=== PATIENT | female | born 1985 ===

== ENCOUNTER 2017-07-23 05:49 | Inpatient (IN) ==
[2017-07-23] MEDS ORDERED: BUTORPHANOL 2 MG/ML VIAL IV PRN (06:02)
[2017-07-23] MEDS ORDERED: ONDANSETRON 4 MG/2 ML VIAL IV PRN (06:02)
[2017-07-23] MEDS: LACTATED RINGERS 1,000 ML IV SCH ×2 (06:29→10:45)
[2017-07-23 06:35] LABS: Basophils % 0.4 % (0.0-0.8); Eosinophils # 0.1 10*3/uL (0.0-0.87); Eosinophils % 1.6 % (0.00-10.9); Hematocrit 33.9 VOL% (35.7-47.0); Hemoglobin 10.9 GM/DL (12.0-16.0); Immature Granulocytes % 0.3 %; Immature Granulocytes Absolute 0.02 #; Lymphocytes # 1.4 10*3/uL (1.4-4.0); Lymphocytes % 19.5 % (21.3-54.2); Mean Corpuscular HGB Conc 32.2 GM/DL (32-36); Mean Corpuscular Hemoglobin 27 PG (27-34); Mean Corpuscular Volume 82.7 FL (87-102); Mean Platelet Volume 10.1 FL (9.6-12.0); Monocytes # 0.4 10*3/uL (0.11-0.8); Monocytes % 5.6 % (1.7-12.7); Neutrophils # 5.3 10*3/uL (1.4-7.4); Neutrophils % 72.6 % (38.7-73.9); Platelet Count 275 T/CUMM (130-400); Red Cell Distribution Width 14.1 % (9.3-17.3); White Blood Count 7.3 T/CUMM (4-12)
[2017-07-23] MEDS: OXYTOCIN/LR 20 UNIT/1,000 ML BAG IV SCH ×2 (07:00→20:05)
[2017-07-23 07:06] LABS: Albumin 2.4 G/DL (3.4-5.0); Bilirubin,Total 0.4 MG/DL (0.2-1.0); Calcium 8.3 MG/DL (8.5-10.1); Osmolality,Calculated 276.4 MOS/KG (273-304); Total Protein 6.7 G/DL (6.4-8.3)
[2017-07-23] MEDS ORDERED: LACTATED RINGERS 1,000 ML IV ONE (08:02)
[2017-07-23] MEDS ORDERED: ePHEDrine 50 MG/ML AMP IV PRN (08:02)
[2017-07-23] MEDS ORDERED: diphenhydrAMINE 50 MG/1 ML VIAL IV PRN ×2 (08:02)
[2017-07-23] MEDS ORDERED: FAMOTIDINE 20 MG/2 ML VIAL IV ONE (08:02)
[2017-07-23] MEDS ORDERED: CITRIC ACID/SODIUM CITRATE 30 ML UDCUP PO ONE (08:02)
[2017-07-23] MEDS ORDERED: PROMETHAZINE 25 MG/1 ML VIAL IM ONE (08:02)
[2017-07-23] MEDS ORDERED: hydrOXYzine HCL 25 MG/1 ML VIAL IM PRN (08:02)
[2017-07-23] MEDS ORDERED: fentaNYL 2 MCG/ROPIV 0.2% EPID 150 ML EPIDURAL SCH (08:30)
[2017-07-23 11:49] LABS: Apearance,Urine CLEAR (Clear); Bilirubin,Urine Negative (Negative); Blood, Urine Negative (Negative); Glucose,Urine (UA) Negative (Negative); Ketones,Urine Negative (Negative); Mucus,Urine Occasional /LPF (Occasional); Nitrite,Urine Negative (Negative); Protein,Urine Negative; RBC,Urine 1 /HPF (0-4); Squamous Epithelial Cell,Urine Occasional /HPF (0-10); Urine Color Yellow (Yellow); WBC,Urine 1 /HPF (0-6)
[2017-07-23] MEDS ORDERED: miSOPROStol 200 MCG TABLET ONE (13:22)
[2017-07-23] MEDS ORDERED: LIDOCAINE 1% 50 ML VIAL ONE (13:23)
[2017-07-23] MEDS ORDERED: BISACODYL 10 MG SUPP RECTAL PRN (20:43)
[2017-07-23] MEDS ORDERED: ACETAMINOPHEN 325 MG TABLET PO PRN (20:43)
[2017-07-23] MEDS ORDERED: RHO(D) IMMUNE GLOBULIN 300 MCG SYRINGE IM ONE (20:43)
[2017-07-23] MEDS ORDERED: HYDROCORTISONE 2.5% RECTAL CREAM 30 GM TUBE TOP PRN (20:43)
[2017-07-23] MEDS ORDERED: IBUPROFEN 800 MG TABLET PO PRN (20:43)
[2017-07-23] MEDS ORDERED: ACETAMINOPHEN/CODEINE 300-30 MG TABLET PO PRN (20:43)
[2017-07-23] MEDS ORDERED: DIPH/TET/ACEL PERT BOOSTER VACCINE 0.5 ML VIAL IM ONE (20:43)
[2017-07-23] MEDS ORDERED: LANOLIN 50% CREAM 0.3 OZ TUBE TOP PRN (20:43)
[2017-07-23] MEDS ORDERED: oxyCODONE/ACETAMINOPHEN 5-325 MG TABLET PO PRN ×2 (20:43)
[2017-07-23] MEDS ORDERED: MEASLES/MUMPS/RUBELLA VACCINE 0.5 ML VIAL SUBCUT ONE (20:43)
[2017-07-23] MEDS ORDERED: BENZOCAINE 20%/MENTHOL 0.5% SPRAY 56 GM CAN TOP PRN (20:43)
[2017-07-23] MEDS ORDERED: WITCH HAZEL PADS 100/JAR TOP PRN (20:43)
[2017-07-24 05:08] LABS: Basophils % 0.2 % (0.0-0.8); Eosinophils # 0.1 10*3/uL (0.0-0.87); Eosinophils % 1.4 % (0.00-10.9); Hematocrit 28.8 VOL% (35.7-47.0); Hemoglobin 9.4 GM/DL (12.0-16.0); Immature Granulocytes % 0.3 %; Immature Granulocytes Absolute 0.03 #; Lymphocytes # 1.1 10*3/uL (1.4-4.0); Lymphocytes % 11.9 % (21.3-54.2); Mean Corpuscular HGB Conc 32.6 GM/DL (32-36); Mean Corpuscular Hemoglobin 27 PG (27-34); Mean Corpuscular Volume 81.8 FL (87-102); Mean Platelet Volume 10.2 FL (9.6-12.0); Monocytes # 0.6 10*3/uL (0.11-0.8); Monocytes % 6.4 % (1.7-12.7); Neutrophils # 7.5 10*3/uL (1.4-7.4); Neutrophils % 79.8 % (38.7-73.9); Platelet Count 222 T/CUMM (130-400); Red Blood Count 3.52 MC/CUMM (3.8-5.5); Red Cell Distribution Width 14.2 % (9.3-17.3); White Blood Count 9.4 T/CUMM (4-12)
[2017-07-24] MEDS: DOCUSATE SODIUM 100 MG CAPSULE PO SCH ×2 (09:41→20:57)
[2017-07-24] MEDS ORDERED: guaiFENesin/CODEINE 5 ML LIQUID PO PRN (20:27)
[2017-07-24] MEDS ORDERED: diphenhydrAMINE CAP 25 MG CAPSULE PO PRN (20:29)
[2017-07-24] MEDS ORDERED: ALBUTEROL 2.5 MG/3 ML NEB RESP TX PRN (20:31)
[2017-07-24] MEDS: FERROUS SULFATE 325 MG TABLET PO SCH (20:57)
[2017-07-24] MEDS ORDERED: AZITHROMYCIN 250 MG TABLET PO SCH (21:00)
[2017-07-25] MEDS: FERROUS SULFATE 325 MG TABLET PO SCH (09:01)
[2017-07-25] MEDS: DOCUSATE SODIUM 100 MG CAPSULE PO SCH (09:01)
[2017-07-25 11:51] VITALS: BP 158/84
== END 2017-07-25 15:15 | disposition home or self-care (01) | DRG 775 ==
LOC: N.LDOUT 05:49 → N.LD 05:57 → N.OB 20:30
PROVIDERS: ADMIT Obstetrics & Gynecology; ATTEND Obstetrics & Gynecology

== ENCOUNTER 2019-12-29 02:13 | Inpatient (IN) ==
[2019-12-29] MEDS ORDERED: LACTATED RINGERS 1,000 ML IV ONE (02:38)
[2019-12-29] MEDS ORDERED: ONDANSETRON 4 MG/2 ML VIAL IV PRN (02:38)
[2019-12-29] MEDS ORDERED: LACTATED RINGERS 1,000 ML IV SCH (03:00)
[2019-12-29 03:15] LABS: Basophils % 0.3 % (0.0-0.8); Eosinophils # 0.1 10*3/uL (0.0-0.87); Eosinophils % 0.9 % (0.00-10.9); Hemoglobin 9.8 GM/DL (12.0-16.0); Immature Granulocytes % 0.5 %; Immature Granulocytes Absolute 0.04 #; Lymphocytes # 1.6 10*3/uL (1.4-4.0); Lymphocytes % 20.8 % (21.3-54.2); Mean Corpuscular HGB Conc 30.6 GM/DL (32-36); Mean Corpuscular Volume 84.7 FL (87-102); Mean Platelet Volume 10.3 FL (9.6-12.0); Neutrophils % 69.5 % (38.7-73.9); Platelet Count 272 T/CUMM (130-400); Red Blood Count 3.78 MC/CUMM (3.8-5.5); Red Cell Distribution Width 14.3 % (9.3-17.3); White Blood Count 7.8 T/CUMM (4-12)
[2019-12-29] MEDS ORDERED: AMPICILLIN INJ 2,000 MG in SODIUM CHLORIDE 0.9% 100 ML IV ONE (03:29)
[2019-12-29] MEDS ORDERED: AMPICILLIN 2,000 MG VIAL ONE (03:31)
[2019-12-29 03:42] LABS: Alanine Aminotransferase 9 U/L (13-56); Albumin 2.1 G/DL (3.4-5.0); Alkaline Phosphatase 166 U/L (45-117); Aspartate Amino Transferase 12 U/L (0-37); Bilirubin,Total < 0.39 MG/DL (0.2-1.0); Blood Urea Nitrogen 11 MG/DL (7-18); Calcium 8.4 MG/DL (8.5-10.1); Estimated Glom Filtration Rate 137 ML/MIN; Glucose 91 MG/DL (74-106); Total Protein 7.3 G/DL (6.4-8.3)
[2019-12-29] MEDS ORDERED: BUTORPHANOL 2 MG/ML VIAL IV PRN (04:52)
[2019-12-29] MEDS ORDERED: FAMOTIDINE 20 MG/2 ML VIAL IV ONE (06:24)
[2019-12-29] MEDS ORDERED: PROMETHAZINE 25 MG/1 ML VIAL IM ONE (06:24)
[2019-12-29] MEDS ORDERED: hydrOXYzine HCL 25 MG/1 ML VIAL IM PRN (06:24)
[2019-12-29] MEDS ORDERED: ePHEDrine 50 MG/ML AMP IV PRN (06:24)
[2019-12-29] MEDS ORDERED: diphenhydrAMINE 50 MG/1 ML VIAL IV PRN ×2 (06:24)
[2019-12-29] MEDS ORDERED: CITRIC ACID/SODIUM CITRATE 30 ML UDCUP PO ONE (06:24)
[2019-12-29] MEDS ORDERED: ONDANSETRON 4 MG/2 ML VIAL IV ONE (06:24)
[2019-12-29] MEDS ORDERED: NALOXONE 0.4 MG/ML VIAL IV PRN (06:24)
[2019-12-29] MEDS ORDERED: fentaNYL 2 MCG/ROPIV 0.2% EPID 100 ML EPIDURAL SCH (06:30)
[2019-12-29] MEDS ORDERED: AMPICILLIN INJ 1,000 MG in SODIUM CHLORIDE 0.9% 100 ML IV SCH (07:30)
[2019-12-29] MEDS ORDERED: TRANEXAMIC ACID 1,000 MG/10 ML VIAL ONE (07:47)
[2019-12-29] MEDS ORDERED: OXYTOCIN/LR 20 UNIT/1,000 ML BAG IV ONE ×2 (07:47→15:22)
[2019-12-29] MEDS ORDERED: miSOPROStoL 200 MCG TABLET ONE (07:47)
[2019-12-29] MEDS ORDERED: METHYLERGONOVINE 0.2 MG/1 ML AMP ONE (07:48)
[2019-12-29] MEDS ORDERED: CARBOPROST TROMETHAMINE 250 MCG/ML AMP IM ONE (07:48)
[2019-12-29] MEDS: OXYTOCIN/LR 20 UNIT/1,000 ML BAG IV SCH ×2 (08:16→13:50)
[2019-12-29] MEDS ORDERED: MEASLES/MUMPS/RUBELLA VACCINE 0.5 ML VIAL SUBCUT ONE (15:22)
[2019-12-29] MEDS ORDERED: WITCH HAZEL PADS 100/JAR TOP PRN ×2 (15:22→16:53)
[2019-12-29] MEDS ORDERED: DIPH/TET/ACEL PERT BOOSTER VACCINE 0.5 ML VIAL IM ONE (15:22)
[2019-12-29] MEDS ORDERED: ACETAMINOPHEN 325 MG TABLET PO PRN (15:22)
[2019-12-29] MEDS ORDERED: BENZOCAINE 20%/MENTHOL 0.5% SPRAY 56 GM CAN TOP PRN (15:22)
[2019-12-29] MEDS ORDERED: LANOLIN 50% CREAM 0.3 OZ TUBE TOP PRN (15:22)
[2019-12-29] MEDS ORDERED: oxyCODONE/ACETAMINOPHEN 5-325 MG TABLET PO PRN ×2 (15:22)
[2019-12-29] MEDS ORDERED: HYDROCORTISONE 2.5% RECTAL CREAM 30 GM TUBE TOP PRN (15:22)
[2019-12-29] MEDS ORDERED: BISACODYL 10 MG SUPP RECTAL PRN (15:22)
[2019-12-29] MEDS ORDERED: RHO(D) IMMUNE GLOBULIN 300 MCG SYRINGE IM ONE (15:22)
[2019-12-29] MEDS: IBUPROFEN 800 MG TABLET PO PRN (16:47)
[2019-12-29] MEDS: DOCUSATE SODIUM 100 MG CAPSULE PO SCH (21:27)
[2019-12-30] MEDS: IBUPROFEN 800 MG TABLET PO PRN (02:26)
[2019-12-30] MEDS: DOCUSATE SODIUM 100 MG CAPSULE PO SCH ×2 (08:55→20:18)
[2019-12-30 09:14] LABS: Basophils % 0.2 % (0.0-0.8); Eosinophils # 0.1 10*3/uL (0.0-0.87); Eosinophils % 0.9 % (0.00-10.9); Hematocrit 29.5 VOL% (35.7-47.0); Hemoglobin 9.2 GM/DL (12.0-16.0); Immature Granulocytes % 0.6 %; Immature Granulocytes Absolute 0.05 #; Lymphocytes # 2.2 10*3/uL (1.4-4.0); Lymphocytes % 25.6 % (21.3-54.2); Mean Corpuscular HGB Conc 31.2 GM/DL (32-36); Mean Corpuscular Volume 83.6 FL (87-102); Mean Platelet Volume 9.9 FL (9.6-12.0); Monocytes % 3.8 % (1.7-12.7); Neutrophils % 68.9 % (38.7-73.9); Platelet Count 210 T/CUMM (130-400); Red Blood Count 3.53 MC/CUMM (3.8-5.5); Red Cell Distribution Width 14.6 % (9.3-17.3); White Blood Count 8.6 T/CUMM (4-12)
[2019-12-31] MEDS: IBUPROFEN 800 MG TABLET PO PRN (02:45)
[2019-12-31] MEDS: DOCUSATE SODIUM 100 MG CAPSULE PO SCH (09:35)
[2019-12-31 13:04] VITALS: BP 122/66
== END 2019-12-31 11:20 | disposition home or self-care (01) | DRG 807 ==
LOC: N.LDOUT 02:13 → N.LD 02:20 → N.OB 14:01
PROVIDERS: ADMIT Obstetrics & Gynecology; ATTEND Obstetrics & Gynecology